=== PATIENT | male | born 1990 | race Caucasian/White ===

== ENCOUNTER 2017-11-30 12:27 | Emergency (ER) | payer OTHER ==
[~2017-11-30] VITALS: Ht 176.5 cm; Wt 71.2 kg
[2017-11-30 12:48] VITALS: BP 137/79
== END 2017-11-30 14:29 | disposition home or self-care (01) ==
LOC: ER 12:33
DX: M25.532 Pain in left wrist (principal); X58.XXXA Exposure to other specified factors, initial encounter; Y93.71 Activity, boxing; Y92.39 Other specified sports and athletic area as the place of occurrence of the external cause; Y99.8 Other external cause status
CPT/HCPCS: 73110; A4606; Z7610